=== PATIENT | female | born 1940 | race Hispanic/Latino ===

== ENCOUNTER 2017-07-30 15:49 | Inpatient (IN) | payer MEDICARE, OTHER ==
[~2017-07-30] VITALS: Ht 162.6 cm; Wt 73.0 kg
--- NOTE | ~2017-07-30 | OR ---
[facility] [address], [place] [address] Draft DATE OF OPERATION: 08/25/2017 SURGEON: Rob Pereira MD FLAKE MILLER HELPER: Dr. Steiner. PREOPERATIVE DIAGNOSES: Cystocele, rectocele. POSTOPERATIVE DIAGNOSES: Cystocele, rectocele. PROCEDURES: Cystocele repair, rectocele repair with dermis reinforcement and cystoscopy. ANESTHESIA: Spinal with IV sedation. ESTIMATED BLOOD LOSS: 75 mL. DRAINS: Allison catheter. PACKS: Vaginal. INDICATIONS AND FINDINGS: The patient is a 76-year-old female 7, para 7, who is menopausal, but has been having increasing issues with pelvic pressure. She has not had any incontinence. She did not have any uterine prolapse. At the time of surgery, she had a grade 2 cystocele and grade 3 rectocele. Her perineum was fairly short as well. There was minimal uterine descensus and no hysterectomy was performed. DESCRIPTION OF PROCEDURE: The patient was prepped and draped in the dorsal lithotomy position. A weighted speculum was placed and the anterior vaginal wall examined and cystocele repair was begun. A incision was made over the base of the bladder. This scored the vaginal mucosa. The vaginal mucosa was then from the underlying tissue with a PATIENT NAME: LATRICIA STACY OPERATIVE REPORT DATE OF : 42 REPORT #: [id number] PHYSICIAN: ROB PEREIRA MD PCP: TARUN SUAREZ DO REPORT IS CONFIDENTIAL AND NOT TO BE RELEASED WITHOUT AUTHORIZATION [facility] [address], [place] [address] Draft combination of blunt and sharp dissection. Following this, an attempt was made to repair the tear in the perivesical fascia. The tissue was of poor quality. Interrupted sutures of 0 Vicryl were placed plicating remained of this tissue. The vaginal mucosa was then trimmed a significant amount because of redundancy. The vaginal mucosa was then closed with a running suture of 2-0 Vicryl. Following this, the weighted speculum was removed and a triangle of tissue was removed from the perineal body with the knife. The vaginal mucosa was then undermined and incised in the midline with the Metzenbaum scissors to the apex of the vagina. The vaginal mucosa was from the underlying tissue with a combination of blunt and sharp dissection. This was carried out superior and laterally to the ischial spines. Rectal examination was done at this point as there was concern that there may be an enterocele present as well, though this was a very large rectocele only. An attempt was made to repair the perirectal type fascia, but this again was of very poor quality. Interrupted sutures of 0 Vicryl were placed in this area in an effort to reduce the defect. Following this, the rectal examination was done, which confirmed good reduction of the defect. The Capio device was used to deploy a 0 Vicryl suture into the sacrospinous ligament. These were placed slightly medial and caudal to the spine itself. These sutures were then sutured to a dermis graft, which had been previously prepared and trimmed into a R-[id number]-bmoi shape. This was sutured at the arms and tied down with appropriate tension across the top of the vagina. The graft was then tacked into place with interrupted sutures of 2-0 Vicryl. This was done across the top of the cuff, at the arm holes, and down the sides. Another rectal examination was done, which confirmed that there was no sutures compromising the rectal lumen. FloSeal was injected around the sacrospinous ligaments on each side to aid in hemostasis. The vaginal mucosa was then trimmed a large amount because of redundancy. The vaginal mucosa was then closed with a running suture of 2-0 Vicryl from the apex of the vagina to the hymenal ring. Additional sutures were required in the midportion for control of bleeding. Following this, the perineal body was reapproximated with interrupted sutures of 2-0 Vicryl. The fourchette was recreated with a running suture of 2-0 Vicryl. The skin of the perineum was closed with subcuticular sutures of the 2-0 Vicryl. Inspection of the vault showed good length and caliber and good reduction of the cystocele and rectocele. Following this, cystoscopy was done. The Allison catheter was removed and the cystoscope was placed. Initially, a 30-degree scope was used, but this was not adequate for visualization and this was replaced by 70-degree scope. The patient had received IV fluorescein as well. Following this, the bladder was thoroughly evaluated and there was no sutures compromising the bladder itself. Both ureteral orifices were identified and clear urine was seen to freely egress from both of the ureteral orifices. Following this, the bladder was drained and the Allison catheter replaced. The vaginal canal was packed with sulfa coated gauze. All sponge and needle counts were correct. She tolerated the procedure well and was taken to the recovery room in good condition. PATIENT NAME: LATRICIA STACY OPERATIVE REPORT DATE OF : 42 REPORT #: [id number] PHYSICIAN: ROB PEREIRA MD PCP: TARUN SUAREZ DO REPORT IS CONFIDENTIAL AND NOT TO BE RELEASED WITHOUT AUTHORIZATION [facility] [address] [place], [place] [address] Draft MD LOWELL Wong/HILDA /[id number] cc: Dr. Markus Malloy Steiner Copies: ~ PATIENT NAME: FERDINAND SWANSON LATRICIA MCNEIL OPERATIVE REPORT DATE OF : 42 REPORT #: [id number] PHYSICIAN: ROB PEREIRA MD PCP: TARUN SUAREZ DO REPORT IS CONFIDENTIAL AND NOT TO BE RELEASED WITHOUT AUTHORIZATION
[~2017-07-30 15:49] MED LIST: ATENOLOL50 MG PO; FOSAMAX70 MG PO; LEVOTHYROXINE100 MCG PO; LISINOPRIL20 MG PO; MELOXICAM15 MG PO; NAPROSYN500 MG PO; NIFEDIPINE ER60 M1 PO; NORCO 5-325 TA1 EACH PO; PANTOPRAZOLE SO40 MG PO; TRAMADOL HCL50 MG PO; TRIAMTERENE-HC1 EAC3 PO; VITAMIN D250000 UNIT PO
[2017-08-26] MEDS ORDERED: NORCO 5-325 TA1 EACH PO (17:51)
[2017-08-26] MEDS ORDERED: IBU800 MG PO (17:51)
[2017-08-26] MEDS ORDERED: SENNA PLUS TAB1 EACH PO (17:52)
[2017-08-26] MEDS ORDERED: KONDREMUL2.5 ML/5 M PO (17:53)
== END 2017-08-26 18:10 | disposition home or self-care (01) | DRG 748 ==
LOC: DSVR 08-25 08:00 → MS 08-25 08:00
PROVIDERS: ADMIT Obstetrics & Gynecology
PROC: 0JUC0KZ Supplement of Pelvic Region Subcutaneous Tissue and Fascia with Nonautologous Tissue Substitute, Open Approach (ICD-10-PCS; principal; 2017-08-25 11:15)
DX: N81.11 Cystocele, midline (principal); N81.6 Rectocele; R11.0 Nausea; I10 Essential (primary) hypertension; K21.9 Gastro-esophageal reflux disease without esophagitis; M81.0 Age-related osteoporosis without current pathological fracture; E89.0 Postprocedural hypothyroidism; Z79.1 Long term (current) use of non-steroidal anti-inflammatories (NSAID); Z79.83 Long term (current) use of bisphosphonates; Z79.891 Long term (current) use of opiate analgesic; Z88.8 Allergy status to other drugs, medicaments and biological substances; Z79.899 Other long term (current) drug therapy
CPT/HCPCS: 36415; 80048; 85025; 94762; C1762; C2631; J0690; J1644; J2250; J2270; J2274; J2370; J2405; J2704; J3010; J7120

== ENCOUNTER 2019-12-27 12:20 | Emergency (ER) | payer MEDICARE, OTHER ==
[~2019-12-27] VITALS: Ht 162.6 cm; Wt 73.0 kg
[~2019-12-27 12:20] MED LIST changes: +IBU800 MG PO; +KONDREMUL2.5 ML/5 M PO; +SENNA PLUS TAB1 EACH PO
[2019-12-27] MEDS ORDERED: VENTOLIN HFA18 GM INH (14:30)
== END 2019-12-27 14:36 | disposition home or self-care (01) ==
LOC: ED 12:20
DX: S80.12XA Contusion of left lower leg, initial encounter (principal); W07.XXXA Fall from chair, initial encounter; I10 Essential (primary) hypertension; Z88.8 Allergy status to other drugs, medicaments and biological substances; Z79.899 Other long term (current) drug therapy
CPT/HCPCS: 73590; 93971; 99284-25

== ENCOUNTER 2023-12-24 08:26 | Emergency (ER) | payer MEDICARE, OTHER ==
[~2023-12-24] VITALS: Ht 162.6 cm; Wt 70.8 kg
[~2023-12-24 08:26] MED LIST changes: +VENTOLIN HFA18 GM INH
[2023-12-24] MEDS ORDERED: ondansetron HCL 4 MG/2 ML VIAL IV ONE (09:00)
[2023-12-24 09:01] LABS: EOSINOPHILS 0.6 % (0-6); HEMATOCRIT 38.2 % (35.0-50.0); HEMOGLOBIN 13.4 g/dL (12.0-18.0); LYMPHOCYTES 21.2 % (24-44); MCH 30.2 (27-36); MCV 86.2 fl (81-99); MONOCYTES 6.3 % (0-12); NEUTROPHILS 70.9 % (39-80); PLATELET COUNT 239 K/uL (140-440); RBC 4.43 M/ul (4.3-5.7); RDW 14.2 (10.5-15.0)
[2023-12-24] MEDS ORDERED: HYDROCHLOROTH12.5 MG PO (09:01)
[2023-12-24] MEDS ORDERED: METFORMIN HCL500 MG PO (09:01)
[2023-12-24] MEDS ORDERED: ATORVASTATIN CA20 MG PO (09:02)
[2023-12-24] MEDS ORDERED: SUCRALFATE1 GM PO (09:02)
[2023-12-24 09:31] LABS: BILIRUBIN, URINE NEGATIVE (negative); BLOOD/HGB, URINE NEGATIVE (Negative); KETONE, URINE NEGATIVE (Negative); LEUK ESTERASE, URINE NEGATIVE (negative); NITRITE, URINE NEGATIVE (negative)
[2023-12-24 09:37] LABS: CRYSTALS, URINE NONE SEEN (0-1+); RED BLOOD CELLS, URINE 0-1 /hpf (0-5)
[2023-12-24 09:38] LABS: BACTERIA, URINE RARE /hpf (negative); CASTS, URINE NONE SEEN \\lpf; COLLECTION TYPE, URINE CLEAN CATCH; REFLEX CULTURE, URINE No (No)
[2023-12-24 09:54] LABS: ALBUMIN 3.8 g/dL (3.4-5.0); ALBUMIN/GLOBULIN RATIO 1.06 (1.1-2.4); ANION GAP 18.3 (7-21); BILIRUBIN, TOTAL 0.8 ng/dL (0.2-1.0); BUN/CREATININE RATIO 13.95 (6.0-28.6); CALCIUM 9.3 mg/dL (8.5-10.1); CREATININE, SERUM 1.29 mg/dL (0.55-1.02); MAGNESIUM 1.6 mg/dL (1.8-2.4); POTASSIUM 3.3 mmol/L (3.5-5.1); PROTEIN, TOTAL 7.4 g/dL (6.4-8.2)
[2023-12-24] MEDS ORDERED: SODIUM CHLORIDE 0.9% 500 ML IV PRN (10:45)
[2023-12-24] MEDS ORDERED: PEPCID20 MG PO (11:40)
[2023-12-24] MEDS ORDERED: LIDOCAINE & ANTACID 35 ML BTL PO ONE (11:45)
[2023-12-24 11:50] VITALS: BP 172/748
--- NOTE | 2023-12-25 22:10 | EKG ---
[facility] [address] [facility] [place], [place] [address] Signed Normal sinus rhythm Normal ECG Confirmed by Masoud Dyson MD ([id number]) on 12/25/2023 10:10:37 PM Electronically Signed By: MASOUD DYSON MD 12/25/232209 PATIENT NAME: LATRICIA STCAY Electrocardiogram DATE OF : 42 PHYSICIAN: MASOUD DYSON MD REPORT #: [id number] REPORT IS CONFIDENTIAL AND NOT TO BE RELEASED WITHOUT AUTHORIZATION
== END 2023-12-24 12:07 | disposition home or self-care (01) ==
LOC: ED 08:26
PROVIDERS: Emergency Medicine
DX: R10.13 Epigastric pain (principal); R07.89 Other chest pain; R06.00 Dyspnea, unspecified; I10 Essential (primary) hypertension; E11.9 Type 2 diabetes mellitus without complications; K21.9 Gastro-esophageal reflux disease without esophagitis; E78.5 Hyperlipidemia, unspecified; Z88.8 Allergy status to other drugs, medicaments and biological substances; Z79.84 Long term (current) use of oral hypoglycemic drugs; Z79.890 Hormone replacement therapy
CPT/HCPCS: 36415; 71045; 74177; 80053; 81001; 83690; 83735; 84484; 85025; 93005; 93010; 96361; 99285-25; J2405; J7040; Q9967

== ENCOUNTER 2024-02-23 06:00 | Day surgery (SDC) | payer MEDICARE, OTHER ==
[2024-02-14 11:41] VITALS: BP 138/84
[~2024-02-23] VITALS: Ht 162.6 cm; Wt 76.4 kg
[~2024-02-23 06:00] MED LIST changes: +ATORVASTATIN CA20 MG PO; +HYDROCHLOROTH12.5 MG PO; +LACTATED RINGER'S 1,000 ML IV SCH; +METFORMIN HCL500 MG PO; +PEPCID20 MG PO; +SUCRALFATE1 GM PO
[2024-02-23 06:18] VITALS: BP 155/122
[2024-02-23] MEDS ORDERED: DEXAMETHASONE SOD PHOS 4 MG/ML VIAL ONE (06:36)
[2024-02-23] MEDS ORDERED: SUCCINYLCHOLINE IN 0.9% NACL 200 MG/10 ML SYRINGE ONE (06:36)
[2024-02-23] MEDS ORDERED: SUGAMMADEX SODIUM 200 MG/2 ML ML ONE (06:36)
[2024-02-23] MEDS ORDERED: LIDOCAINE HCL 4% 5 ML AMP ONE (06:36)
[2024-02-23] MEDS ORDERED: FAMOTIDINE 20 MG/ 2 ML VIAL ONE (06:36)
[2024-02-23] MEDS ORDERED: ondansetron HCL 4 MG/2 ML VIAL ONE (06:36)
[2024-02-23] MEDS ORDERED: fentaNYL citrate 100 MCG/2 ML VIAL ONE (06:36)
[2024-02-23] MEDS ORDERED: LACTATED RINGER'S 1,000 ML IV ONE (06:36)
[2024-02-23] MEDS ORDERED: KETOROLAC TROMETHAMINE 30 MG/ML VIAL ONE (06:36)
[2024-02-23] MEDS ORDERED: propofoL 200 MG/20 ML VIAL ONE ×2 (06:36→08:16)
[2024-02-23] MEDS ORDERED: METOCLOPRAMIDE HCL 10 MG/2 ML SDV ONE (06:36)
[2024-02-23] MEDS ORDERED: ROCURONIUM BROMIDE 50 MG/5 ML SYR ONE (06:36)
[2024-02-23 06:45] VITALS: BP 172/59
[2024-02-23] MEDS ORDERED: CEFAZOLIN SODIUM 2 GM/20 ML SYR IV SCH (07:00)
[2024-02-23] MEDS ORDERED: ENOXAPARIN SODIUM 40 MG/0.4 ML SYR SUB-Q SCH (07:00)
[2024-02-23] MEDS ORDERED: LIDOCAINE HCL 1% 5 ML SDV INJ ONE (07:00)
[2024-02-23] MEDS ORDERED: IBLOOD GLUCOSE TEST STRIP 1 EA TEST VI PRN ×2 (07:00→08:30)
[2024-02-23] MEDS ORDERED: metroNIDAZOLE/SODIUM CHLORIDE 500 MG/100 ML PIGGYBACK IV SCH (07:00)
[2024-02-23] MEDS ORDERED: METOPROLOL TARTRATE 5 MG/5 ML VIAL ONE (08:26)
[2024-02-23] MEDS ORDERED: PROCHLORPERAZINE EDISYLATE 10 MG/2 ML VIAL IV PRN ×2 (08:30→09:00)
[2024-02-23] MEDS ORDERED: MORPHINE SULFATE 10 MG/ML VIAL IV PRN (08:30)
[2024-02-23] MEDS ORDERED: METOCLOPRAMIDE HCL 10 MG/2 ML SDV IV PRN (08:30)
[2024-02-23] MEDS ORDERED: NALOXONE HCL 0.4 MG SYR IV PRN ×2 (08:30→09:00)
[2024-02-23] MEDS ORDERED: ondansetron HCL 4 MG/2 ML VIAL IV PRN ×2 (08:30→09:00)
[2024-02-23] MEDS ORDERED: droPERidol 5 MG/2 ML VIAL IV PRN (08:30)
[2024-02-23] MEDS ORDERED: fentaNYL citrate 50 MCG/ML SDV IV PRN (08:30)
--- NOTE | 2024-02-23 08:49 | NUR ---
02/23/24 0849 Estephania Vela 0838 PT TO PACU SLEEPING ORAL AIRWAY IN PLACE O2 VIA MASK FOGGING NOTED IN MASK.
[2024-02-23] MEDS ORDERED: HYDROmorphone HCL 1 MG/ML SYR IV PRN (09:00)
[2024-02-23] MEDS ORDERED: OXYCODONE HCL 5 MG TAB PO PRN (09:00)
[2024-02-23 09:39] VITALS: BP 157/64
--- NOTE | 2024-02-23 09:41 | NUR ---
VIRGEN 0940: PT IS BACK TO DS FROM PACU. SHE IS AT HER BASELINE. SHE IS TOLERATING WATER. MINIMAL C/O PAIN, NO NAUSEA. CALL LIGHT WITHIN REACH. NO ADDITIONAL NEEDS AT THIS TIME.
--- NOTE | 2024-02-23 10:56 | OR ---
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 PROCEDURE: Primary repair of left spigelian hernia with intraabdominal 6.4 cm round Ventralex mesh. ESTIMATED BLOOD LOSS: None. INDICATIONS: Latricia is an 83-year-old female, who would come to the office with her daughter. She has been having trouble with epigastric abdominal pain and acid reflux. She is quite convinced that it is related to this hernia in her left lower quadrant. We can see this hernia as far back as [address] scan. She and I could feel it in the office, but it is not reducible. A repeat ultrasound and CT scan a few months ago confirmed this left lower quadrant hernia containing fat. The fascial defect was about 2.9 cm in diameter. It is in the classic location both on physical exam and on radiographic studies for a spigelian hernia. There was an increase in the amount of fat that had gone through this hernia, it was not reducible. She had asked me to repair it for her. I gave her our brochure on hernias. We explained the nature of the spigelian hernia to her and her daughter. We used a transverse incision, and often we have to use a muscle-splitting technique to get the hernia reduced. Much like an appendectomy, then we closed it on our way out. We generally put mesh from the back. These surgeries take about an hour. There is risk including, but not limited to bleeding, infection, scarring, change in contour of the skin, damage to bowel, infection of mesh requiring removal, recurrent hernias, and chronic pain. She had expressed understanding and wished to proceed. PROCEDURE IN DETAIL: I met with Latricia and her family in our preop area. She was able to show me her hernia. We both could visibly and palpably appreciate the hernia. It was marked appropriately. After this, Latricia was taken into the operating room, placed in the supine position under general endotracheal tube anesthesia. She was given preoperative Electronically Signed By: WINDY SCHMITZ MD 02/23/24 1056 PATIENT NAME: LATRICIA STACY OPERATIVE REPORT DATE OF : 42 REPORT #: [id number] PHYSICIAN: WINDY SCHMITZ MD PCP: CORTEZ ROBLES PA-C REPORT IS CONFIDENTIAL AND NOT TO BE RELEASED WITHOUT AUTHORIZATION [facility] [address] [place], [place] [address] Signed antibiotics along with subcutaneous Lovenox. SCDs were utilized. Allison catheter was inserted with return of clear yellow urine without difficulty. She was then prepped and draped in the usual sterile fashion. We made a transverse incision over the herniated fat and carried this bluntly down the external oblique. As it is common, we had opened the external oblique fibers along their length. Upon separation of the external oblique fibers, then we could see the herniated fat. We worked our way down to the neck of the hernia and excised the hernia sac completely. We carefully and bluntly reduced the omentum back into the abdominal cavity. Thankfully, omentum was not adherent to the rim of the hernia. The hernia sac was indeed about 2.9 cm in diameter. We therefore chose our 6.4 cm round Ventralex mesh and we placed that into the abdomen, brought it up, flushed against the posterior abdominal wall. We closed the inner layer with a running #1 Prolene suture. Several passes of the suture went through the tab on the mesh to help hold it in place. The tab was then cut, flushed with the abdominal wall. Local anesthetic was injected in the abdominal wall. The wound was then irrigated and suctioned out until clear. We then closed the external oblique along its length with a running 0-Prolene suture. Again, irrigation was undertaken. An additional local was injected in the abdominal wall along with the subcutaneous tissues. We then closed Rolando fascia with a running 3-0 Monocryl suture. The dermis was reapproximated with interrupted 3-0 Monocryl sutures. The skin edges were reapproximated with a running 5-0 fast absorbing plain gut suture. Dry gauze and tape were then applied. The Allison catheter was removed without difficulty. Latricia was then awakened from anesthesia, extubated in the OR, and taken to the recovery room in stable condition. Windy Schmitz MD ALB/MODL /[id number] cc: Patient Chart MD Cortez Kang Electronically Signed By: WINDY SCHMITZ MD 02/23/24 1056 PATIENT NAME: LATRICIA STACY OPERATIVE REPORT DATE OF : 42 REPORT #: [id number] PHYSICIAN: WINDY SCHMITZ MD PCP: CORTEZ ROBLES PA-C REPORT IS CONFIDENTIAL AND NOT TO BE RELEASED WITHOUT AUTHORIZATION [address] [place], [place] [address] Signed Copies: WINDY SCHMITZ MD ~ Electronically Signed By: WINDY SCHMITZ MD 02/23/24 1056 PATIENT NAME: STREETERLATRICIA WALDRON OPERATIVE REPORT DATE OF : 42 REPORT #: [id number] PHYSICIAN: WINDY SCHMITZ MD PCP: CORTEZ ROBLES PA-C REPORT IS CONFIDENTIAL AND NOT TO BE RELEASED WITHOUT AUTHORIZATION
[2024-02-23 11:04] VITALS: BP 172/62
--- NOTE | 2024-02-23 11:05 | NUR ---
PT IS DOING WELL, SHE WOULD LIKE SOMETHING FOR PAIN. DAUGHTER IS AT THE BEDSIDE. CALL LIGHT WITHIN REACH. SHE WOULD LIKE TO SNACK ON PUDDING.
[2024-02-23 11:41] VITALS: BP 159/77
--- NOTE | 2024-02-23 11:56 | NUR ---
VIRGEN 1145: PT IS DOING WELL, PAIN HAS LESSENED. SHE INDICATES THAT SHE WOULD LIKE TO GO HOME AT THIS TIME. PT AND FAMILY ARE GIVEN WRITTEN AND VERBAL DC INSTRUCTIONS. THEY VERBALIZE UNDERSTANDING. NO QUESTIONS AT THIS TIME. PT IS EDUCATED ON HOW TO BEST DRESS HERSELF AND TO OPEN HER CURATIN WHEN READY. PT STATES SHE NEEDS TO GET UP TO USE THE BATHROOM. SRT HELPS HER TO THE RESTROOM. PT STARTS BLEEDING THROUGH DC'D IV SITE. AREA IS CHANGED/REINFORCED.
--- NOTE | 2024-02-23 12:09 | NUR ---
LE 1207: PT IS DC'D HOME VIA WC. TAKEN TO PERSONAL VEHICLE VIA WC.
== END 2024-02-23 12:07 | disposition home or self-care (01) ==
LOC: DS 06:00
PROVIDERS: ATTEND Colon & Rectal Surgery
PROC: 0WUF0JZ Supplement Abdominal Wall with Synthetic Substitute, Open Approach (ICD-10-PCS; principal; 2024-02-23 07:30)
DX: K43.6 Other and unspecified ventral hernia with obstruction, without gangrene (principal); I10 Essential (primary) hypertension; E11.40 Type 2 diabetes mellitus with diabetic neuropathy, unspecified; E78.5 Hyperlipidemia, unspecified; K21.9 Gastro-esophageal reflux disease without esophagitis; E89.0 Postprocedural hypothyroidism; M81.0 Age-related osteoporosis without current pathological fracture; Z79.890 Hormone replacement therapy; Z79.84 Long term (current) use of oral hypoglycemic drugs; Z79.899 Other long term (current) drug therapy
CPT/HCPCS: 00750; A9270; C1781; J0330; J0690; J1100; J1650; J1885; J2405; J2704; J2765; J3010; J3490; J7121